=== PATIENT | female | born 1985 | race Caucasian/White ===

== ENCOUNTER 2017-07-31 02:12 | Emergency (ER) | payer OTHER ==
[2017-07-31 02:26] VITALS: BP 111/67; PULSE 65; RESP 14; TEMP 98; O2SAT 96
--- NOTE | 2017-07-31 02:33 | PD ---
HPI Chief Complaint: Eye Problems/Injury Time Seen by Provider: 02:32 Travel History International Travel<30 days: No Contact w/Intl Traveler<30days: No Traveled to known affect area: No History of Present Illness HPI 31-year-old female presents emergency department for evaluation after an exposure. Patient states that a lidocaine with epi bottle burst and splashed on her hands. She states she did wash her hands. She is not certain of anything on her face. She has developed a few raised wheals on her face since this happened. She is uncertain if she touched her face after it happened. Denies any oral sensation swelling. No difficulty breathing. She has no known allergies. She has no other symptoms to report. [facility] Past Medical History Medical History: Denies Significant Hx ?: Not LMP: 07/22/2017 Social History Tobacco Use: No Allergies-Medications (Allergen,Severity, Reaction): Coded Allergies: No Known Allergies (Unverified , 07/31/17) Reported Meds & Prescriptions Reported Meds & Active Scripts Active No Active Prescriptions or Reported Medications Review of Systems Except as stated in HPI: all other systems reviewed are Neg Physical Exam Narrative GENERAL: Well-nourished, well-developed female patient in no acute distress SKIN: Focused skin assessment warm/dry. Patient has a 3 cm sized raised wheals scattered on her face. No vesicle or pustule formation. HEAD: Normocephalic. EYES: No scleral icterus. No injection or drainage. NECK: Supple, trachea midline. No JVD or lymphadenopathy. CARDIOVASCULAR: Regular rate and rhythm without murmurs, gallops, or rubs. RESPIRATORY: Breath sounds equal bilaterally. No accessory muscle use. GASTROINTESTINAL: Abdomen soft, non-tender, nondistended. MUSCULOSKELETAL: No cyanosis, or edema. BACK: Nontender without obvious deformity. No CVA tenderness. Data Data Last Documented VS Vital Signs Date Time Temp Pulse Resp B/P (MAP) Pulse Ox O2 Delivery O2 Flow Rate FiO2 07/31/17 02:26 98.0 65 14 111/67 (82) 96 Orders Orders Prednisone (Deltasone) (07/31/17 02:45) Ed Discharge Order (07/31/17 02:38) [facility] Medical Decision Making Medical Screen Exam Complete: Yes Emergency Medical Condition: Yes Medical Record Reviewed: Yes Differential Diagnosis Contact dermatitis versus allergic reaction versus stress reaction Narrative Course 31-year-old female presents emergency department for evaluation. Patient appears without distress. Vital signs are stable. This is likely a contact reaction to the medication. Patient appears stable. She is given a steroid here but does not want Benadryl at this time. She agrees to follow-up with primary care provider and return immediately with acute worsening symptoms Diagnosis Primary Impression: Contact allergic reaction Referrals: Primary Care Physician Patient Instructions: General Allergic Reaction (ED), General Instructions Additional Instructions: Avoid scratching the area Follow-up with a primary care provider Take Benadryl as directed on the package as soon as you get home Return immediately with any acute worsening symptoms Med/Other Pt SpecificInfo: No Change to Meds Scripts No Active Prescriptions or Reported Meds Disposition: 01 DISCHARGE HOME Condition: Stable Maria Guadalupe Ding Jul 31, 2017 02:33
[2017-07-31] MEDS ORDERED: predniSONE 20 MG TAB PO ONE (02:45)
== END 2017-07-31 02:54 | disposition home or self-care (01) ==
LOC: NEPD 02:12
DX: T78.40XA Allergy, unspecified, initial encounter (principal)
CPT/HCPCS: 99283; J7512

== ENCOUNTER 2017-09-10 19:29 | Emergency (ER) | payer MEDICAID ==
[~2017-09-10] VITALS: Ht 162.6 cm; Wt 66.0 kg
[2017-09-10 19:36] VITALS: BP 135/88; PULSE 82; RESP 18; TEMP 98.4; O2SAT 99
--- NOTE | 2017-09-10 20:17 | PD ---
HPI Chief Complaint: Neuro Symptoms/ Deficits Time Seen by Provider: 19:58 Travel History International Travel<30 days: No Contact w/Intl Traveler<30days: No Traveled to known affect area: No History of Present Illness HPI The patient is a 32-year-old female who presents to the emergency department for left lid lag. The patient states her symptoms started during her third with occasional left lid lag. The patient states she saw her sequencing machine operator about it at that time who stated it would probably improve after she delivered. However, she notes over the last week she has had increasing lid lag on the left. Occasionally she finds it difficult to open the left eye and has to concentrate on keeping it open. She denies any blurry vision or visual acuity changes with the left eye. She denies any difficulty with facial movements including smiling, eating, and talking. She denies any deficits of the upper or lower extremities. She denies any history of TIA, CVA , or MS. The patient never followed up with a neurologist after her secondary to insurance related issues. She does complain of mild lightheadedness and presyncopal symptoms. Symptoms are moderate. PFSH Past Medical History Medical History: Denies Significant Hx Diminished Hearing: No Tetanus Vaccination: < 5 Years Influenza Vaccination: Yes ?: Unknown LMP: 08/20/17 Past Surgical History Surgical History: No Previous Surgery Social History Alcohol Use: No Tobacco Use: No Substance Use: No Allergies-Medications (Allergen,Severity, Reaction): Coded Allergies: bupivacaine (Verified Allergy, Mild, Hives, 09/10/17) Reported Meds & Prescriptions Reported Meds & Active Scripts Active No Active Prescriptions or Reported Medications Review of Systems Except as stated in HPI: all other systems reviewed are Neg General / Constitutional: No: Fever Eyes: Positive: Other (As noted in the history of present illness), No: Diploplia, Blurred Vision, Photophobia, Foreign Body Sensation, Pain, Blind Spots, Visual changes, Blindness HENT: Positive: Lightheadedness, No: Headaches, Neck Pain Gastrointestinal: No: Nausea, Vomiting Neurologic: Positive: Focal Abnormalities (Left lid lag), Other (As noted in the history of present illness), No: Headache, Paresthesia, Sensory Disturbance Physical Exam Narrative GENERAL: Awake, alert, pleasant 32-year-old female who appears her stated age and is in no acute respiratory distress. SKIN: Focused skin assessment warm/dry. HEAD: Atraumatic. Normocephalic. EYES: Pupils equal and round. Pupils are 4 mm bilateral and reactive. EOMs are intact. Patient is able to see fingers at a distance of 2 feet from the left and right eye without difficulty. Left lid lag is noted. However, patient is able to shut her eyes completely bilaterally against resistance. ENT: No nasal bleeding or discharge. Mucous membranes pink and moist. NECK: Trachea midline. No JVD. CARDIOVASCULAR: Regular rate and rhythm. No murmur appreciated. RESPIRATORY: No accessory muscle use. Clear to auscultation. Breath sounds equal bilaterally. GASTROINTESTINAL: Abdomen soft, non-tender, nondistended. Hepatic and splenic margins not palpable. MUSCULOSKELETAL: No obvious deformities. No clubbing. No cyanosis. No edema. NEUROLOGICAL: Awake and alert. Motor grossly within normal limits. Normal speech. Nonfocal. No drift of the upper or lower extremities. Sensation is symmetric in V1, V2, and V3 distribution. Smile is symmetric. No dysarthria noted. Patient is able to wrinkle her eyebrows equally bilaterally. Sensation is symmetric on the arms or legs. Finger to nose and heel to infante are normal. PSYCHIATRIC: Appropriate mood and affect; insight and judgment normal. Data Data Last Documented VS Vital Signs Date Time Temp Pulse Resp B/P (MAP) Pulse Ox O2 Delivery O2 Flow Rate FiO2 09/10/17 19:36 98.4 82 18 135/88 (104) 99 Orders Orders Complete Blood Count With Diff (09/10/17 20:06) Comprehensive Metabolic Panel (09/10/17 20:06) Ed Urine Pregnancytest Poc (09/10/17 20:06) Mri Brain W&W/O Contrast (09/10/17 ) Gadodiamide Pf Inj (Omniscan Pf Inj) (09/10/17 21:35) Free T3 (09/10/17 20:10) Free Thyroxine (T4) (09/10/17 20:10) Thyroid Stimulating Hormone (09/10/17 20:10) Labs Laboratory Tests Test 09/10/17 20:10 White Blood Count 9.8 TH/MM3 Red Blood Count 4.05 MIL/MM3 Hemoglobin 12.0 GM/DL Hematocrit 36.0 % Mean Corpuscular Volume 88.8 FL Mean Corpuscular Hemoglobin 29.6 PG Mean Corpuscular Hemoglobin Concent 33.4 % Red Cell Distribution Width 14.5 % Platelet Count 359 TH/MM3 Mean Platelet Volume 8.6 FL Neutrophils (%) (Auto) 56.6 % Lymphocytes (%) (Auto) 32.1 % Monocytes (%) (Auto) 8.5 % Eosinophils (%) (Auto) 0.9 % Basophils (%) (Auto) 1.9 % Neutrophils # (Auto) 5.5 TH/MM3 Lymphocytes # (Auto) 3.1 TH/MM3 Monocytes # (Auto) 0.8 TH/MM3 Eosinophils # (Auto) 0.1 TH/MM3 Basophils # (Auto) 0.2 TH/MM3 CBC Comment DIFF FINAL Differential Comment Blood Urea Nitrogen 11 MG/DL Creatinine 0.82 MG/DL Random Glucose 106 MG/DL Total Protein 7.3 GM/DL Albumin 3.8 GM/DL Calcium Level 8.9 MG/DL Alkaline Phosphatase 70 U/L Aspartate Amino Transf (AST/SGOT) 20 U/L Alanine Aminotransferase (ALT/SGPT) 24 U/L Total Bilirubin 0.2 MG/DL Sodium Level 139 MEQ/L Potassium Level 3.8 MEQ/L Chloride Level 107 MEQ/L Carbon Dioxide Level 22.0 MEQ/L Anion Gap 10 MEQ/L Estimat Glomerular Filtration Rate 81 ML/MIN Free Thyroxine 1.02 NG/DL Free Triiodothyronine (T3) pg/dL 2.61 PG/ML Thyroid Stimulating Hormone 3rd Gen 2.080 uIU/ML MDM Medical Decision Making Medical Screen Exam Complete: Yes Emergency Medical Condition: Yes Medical Record Reviewed: Yes Interpretation(s) Last Impressions Brain MRI 09/10/17 0000 Signed Impressions: CONCLUSION: 1. No acute findings. No mass effect or midline shift. No recent infarction. Laboratory Tests Test 09/10/17 20:10 White Blood Count 9.8 TH/MM3 Red Blood Count 4.05 MIL/MM3 Hemoglobin 12.0 GM/DL Hematocrit 36.0 % Mean Corpuscular Volume 88.8 FL Mean Corpuscular Hemoglobin 29.6 PG Mean Corpuscular Hemoglobin Concent 33.4 % Red Cell Distribution Width 14.5 % Platelet Count 359 TH/MM3 Mean Platelet Volume 8.6 FL Neutrophils (%) (Auto) 56.6 % Lymphocytes (%) (Auto) 32.1 % Monocytes (%) (Auto) 8.5 % Eosinophils (%) (Auto) 0.9 % Basophils (%) (Auto) 1.9 % Neutrophils # (Auto) 5.5 TH/MM3 Lymphocytes # (Auto) 3.1 TH/MM3 Monocytes # (Auto) 0.8 TH/MM3 Eosinophils # (Auto) 0.1 TH/MM3 Basophils # (Auto) 0.2 TH/MM3 CBC Comment DIFF FINAL Differential Comment Blood Urea Nitrogen 11 MG/DL Creatinine 0.82 MG/DL Random Glucose 106 MG/DL Total Protein 7.3 GM/DL Albumin 3.8 GM/DL Calcium Level 8.9 MG/DL Alkaline Phosphatase 70 U/L Aspartate Amino Transf (AST/SGOT) 20 U/L Alanine Aminotransferase (ALT/SGPT) 24 U/L Total Bilirubin 0.2 MG/DL Sodium Level 139 MEQ/L Potassium Level 3.8 MEQ/L Chloride Level 107 MEQ/L Carbon Dioxide Level 22.0 MEQ/L Anion Gap 10 MEQ/L Estimat Glomerular Filtration Rate 81 ML/MIN Free Thyroxine 1.02 NG/DL Free Triiodothyronine (T3) pg/dL 2.61 PG/ML Thyroid Stimulating Hormone 3rd Gen 2.080 uIU/ML Differential Diagnosis Differential diagnosis includes isolated cranial nerve III palsy, sympathic nerve neuropathy, brain tumor, MS, CVA, TIA, hyperthyroidism, hypothyroidism, ocular myasthenia. Narrative Course IV was established, labs are drawn and sent, and the patient was placed on cardiac telemetry monitoring and continuous pulse oximetry monitoring. Bedside UA test was negative. MRI of the brain with and without contrast was ordered. TSH, free T4, free T3 were sent to lab. The patient's TSH, free T4, and free T3 are unremarkable. CBC and CMP are unremarkable. MRI the brain is negative for mass or infarction. The patient may have a peripheral neuropathy affecting the 2 nerves that elevate the left eyelid. The patient is advised to follow-up with neurology on an outpatient basis. I doubt myasthenia gravis with intermittent symptoms since her third only affecting the left eye and no other systems. However, she is advised to return if she has any difficulty swallowing or progressing symptoms. The patient is advised to follow -up with neurology. Diagnosis Primary Impression: Lid lag Referrals: Jan Rosas MD PhD Patient Instructions: General Instructions Additional Instructions: Please provide the patient a copy of her MRI results and lab results at discharge. Follow-up with neurology. Return for progressing symptoms. Med/Other Pt SpecificInfo: No Change to Meds Scripts No Active Prescriptions or Reported Meds Disposition: 01 DISCHARGE HOME Condition: Stable Leeroy Ornelas MD Sep 10, 2017 20:17
[2017-09-10 20:53] LABS: AUTOMATED NEUTROPHIL # 5.5 TH/MM3 (1.8-7.7); BASOPHIL # 0.2 TH/MM3 (0-0.2); BASOPHIL % 1.9 % (0.0-2.0); EOSINOPHIL # 0.1 TH/MM3 (0-0.4); EOSINOPHIL % 0.9 % (0.0-4.0); LYMPH % 32.1 % (9.0-44.0); LYMPHOCYTE # 3.1 TH/MM3 (1.0-4.8); MEAN CELL VOLUME 88.8 FL (80.0-100.0); MEAN CORPUSCULAR HEMOGLOBIN 29.6 PG (27.0-34.0); MEAN CORPUSCULAR HGB CONC 33.4 % (32.0-36.0); MEAN PLATELET VOLUME 8.6 FL (7.0-11.0); MONO % 8.5 % (0.0-8.0); MONOCYTE # 0.8 TH/MM3 (0-0.9); NEUT % 56.6 % (16.0-70.0); PLATELET COUNT 359 TH/MM3 (150-450); RED BLOOD COUNT 4.05 MIL/MM3 (4.00-5.30); RED CELL DISTRIBUTION WIDTH 14.5 % (11.6-17.2); WHITE BLOOD COUNT 9.8 TH/MM3 (4.0-11.0)
[2017-09-10 21:10] LABS: ALBUMIN 3.8 GM/DL (3.4-5.0); AST (GOT) 20 U/L (15-37); BLOOD UREA NITROGEN 11 MG/DL (7-18); CALCIUM 8.9 MG/DL (8.5-10.1); CHLORIDE 107 MEQ/L (98-107); CREATININE 0.82 MG/DL (0.50-1.00); GLOMERULAR FILTRATION RATE 81 ML/MIN (>89); GLUCOSE,RANDOM 106 MG/DL (74-106); SODIUM (NA) 139 MEQ/L (136-145)
[2017-09-10 21:13] LABS: ALKALINE PHOSPHATASE 70 U/L (45-117); ALT (GPT) 24 U/L (10-53); TOTAL BILIRUBIN ADULT 0.2 MG/DL (0.2-1.0); TOTAL PROTEIN 7.3 GM/DL (6.4-8.2)
[2017-09-10] MEDS ORDERED: GADODIAMIDE PF 287 MG/ML 5 ML VIAL (for RAD MRI) IVCONTRAST ONE (21:35)
[2017-09-10 21:57] LABS: FREE T3 2.61 PG/ML (2.18-3.98); FREE T4 1.02 NG/DL (0.76-1.46)
--- NOTE | 2017-09-10 22:14 | RADRPT ---
EXAM DATE: 09/10/2017 9:46 PM EDT AGE/SEX: 32 years / Female INDICATIONS: . Nerve disorder. Left eye lag for the past year worsening over the past few days. CLINICAL DATA: This is the patient's initial encounter. Patient reports that signs and symptoms have been present for 1 day and indicates a pain score of 0/10. MEDICAL/SURGICAL HISTORY: None. . Breast implants. COMPARISON: No prior [facility] exams available for comparison. TECHNIQUE: Multiplanar, multisequence examination of the brain was performed without and with 14 ml O mniscan (gadodiamide) contrast as a single exam dose. FINDINGS: No discrete renal mass or shift. No hydrocephalus. No abnormal extra-axial fluid. No abnormal enhanci ng lesions are identified postcontrast. CONCLUSION: 1. No acute findings. No mass effect or midline shift. No recent infarction. Electronically signed by: Renzo Galicia MD 09/10/2017 10:13 PM EDT
== END 2017-09-10 22:49 | disposition home or self-care (01) ==
LOC: NEPE 19:29
DX: H02.536 Eyelid retraction left eye, unspecified eyelid (principal); R42 Dizziness and giddiness
CPT/HCPCS: 70553; 80053; 84439; 84443; 84481; 84703; 85025; 99284; A9579